=== PATIENT | female | born 1995 | race Caucasian/White ===

== ENCOUNTER → 2017-01-28 11:16 | Day surgery (SDC) | payer MEDICAID, SELFPAY | PROVIDERS: Visit Provider Anesthesiology | DX: Z53.9 Procedure and treatment not carried out, unspecified reason (principal) ==

== ENCOUNTER 2018-02-13 21:05 | Emergency (ER) | payer MEDICAID, SELFPAY ==
[2018-02-13 21:06] VITALS: BP 135/93; PULSE 135; RESP 14; TEMP 36.8; O2SAT 99; BMI 19.0
--- NOTE | 2018-02-13 21:17 | CT_ITS ---
STUDY: CT ABDOMEN AND PELVIS WITHOUT CONTRAST REASON FOR EXAM: Female, 22 years old. Left-sided abdominal pain with elevated blood pressure. RADIATION DOSAGE (If Supplied By Facility): CTDIvol = ( 6.04 ) mGy, DLP = ( 276.44 ) mGycm TECHNIQUE: Transaxial images were obtained from the dome of the diaphragm to the symphysis pubis without oral contrast, and without intravenous contrast. Sagittal and coronal images were reconstructed. Individualized dose optimization techniques were used for this CT. COMPARISON: Prior comparison studies are not available for review at this time. FINDINGS: The visualized lung bases are unremarkable. The visualized portions of the heart are within normal limits. Normal liver. The gallbladder is contracted. There is moderate splenomegaly. Estimated size of the spleen is approximately 19.5 cm in greatest dimension. Normal pancreas. Normal bilateral adrenal glands. 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 There is no evidence for hydronephrosis, hydroureter or radiopaque ureteral calculi. Normal visualized stomach. There is no evidence for dilated bowel, ascites or pneumoperitoneum. The small bowel has a grossly normal appearance. Stool visible throughout the colon. There is non-visualization of the appendix. Normal abdominal aorta. Normal inferior vena cava. There is borderline retroperitoneal lymphadenopathy with enlarged nodes no greater than 10mm in the short axis diameter. Normal urinary bladder. Normal visualized uterus. Normal abdominal wall. Normal osseous structures. CT/Abdomen/Pelvis without Cont IMPRESSION: Moderate splenomegaly. Electronically Signed: Adri Kee MD at 23:12 EST , Service support ,
--- NOTE | 2018-02-13 21:26 | ED.DCSUM_ITS ---
- ER Visit Summary Date of Service: 02/13/18 Chief Complaint: Acute left abdomen/flank pain History of Present Illness: The patient is a 22 F who presents with acute left abdomen/flank pain that started 2 days ago. She states is severe associate with nausea vomiting. This is more severe than pain she experienced with ovarian cyst. She is presently on her menstrual cycle. She denies dysuria, frequency, urgency or hematuria. She states she cannot find a position of comfort. She has no known history of renal ureterolithiasis. She denies ocular, visual or auditory symptoms. She denies fever, chills or night sweats. She denies cardiac respiratory symptoms. She denies history of trauma. She denies any rash or skin lesions. Physical Examination: Vital signs noted and triage has heart rate of 135. Patient was placed on monitor per ks and monitor reveals a sinus rhythm rate of 90. Head is atraumatic normocephalic. Pupils are equal round reactive. Extraocular muscles are intact. TMs are pearly white with landmarks noted. Nares patent with no drainage. Posterior pharynx without erythema or exudate. Uvula is midline. There is no dysphonia or dysphasia. Dentition is poor with evidence of gingivitis. Trachea is midline. There is no stridor with auscultation of the neck. Heart is regular without murmur, gallop or rub. S1 and S2 are normal. Lungs are clear to auscultation with good movement of air bilaterally. Abdomen is soft with tenderness to deep palpation over the left kidney. There is left CVA tenderness noted. No rash or skin lesions noted. No evidence of an inguinal hernia or inguinal lymphadenopathy. Test Results: CT of the abdomen and pelvis without contrast reveals mild splenomegaly. Basic metabolic panel is unremarkable. Serum test is negative. UA is remarkable for leukoesterase and blood 25 and 150 respectively. Nitrites negative. Micro reveals 0-5 WBCs 0-5 RBCs and 1+ bacteria. White count is normal with normal differential and no atypical lymphocytes Emergency Department Course and Treatment: IV was established to be treated with Toradol and Zofran. Blood work was obtained and CT of the abdomen pelvis and abdomen were obtained without contrast. The left-sided abdominal pain may be secondary to the spinal megaly. Will obtain CBC to assess for atypical lymphocytes and white count with differential. Treatment Plan: Prescription for Macrobid for cystitis and encourage fiber in her diet Disposition: Discharge to home Impression: 1. Left-sided abdominal pain secondary to obstipation 2. Mild splenomegaly This note was generated with [employer] dictation software. It may contain incorrect words, spelling, and punctuation that were not noted in review of the chart geno or to signing ED Disposition - Plan for ED Patient: Disposition: Home or Assisted Living Chief Complaint: Abd Pain Instructions: ED Constipation Referrals: Lore Barker MD [Primary Care Provider] - Doctor,Your [STAFF PHYSICIAN] - Additional Instructions: Your spleen is slightly enlarged. The cause of this is uncertain. You will need to follow-up with your primary care doctor that you were assigned to by your insurance carrier, [employer]. The name of that physician is located on your card with his or her phone number.
[2018-02-13] MEDS: 0.9% Normal Saline 1,000 ML 250 ML IV (21:29)
[2018-02-13] MEDS: Ondansetron 4 MG/2 ML Vial IV (21:30)
[2018-02-13] MEDS: Ketorolac 30 MG/ML Syringe IV (21:30)
[2018-02-13 21:52] LABS: Anion Gap 5 (5-15); BUN 22 mg/dL (7-18); BUN/Creat Ratio 28.8 RATIO (10-20); Calcium,Total 8.5 mg/dL (8.5-10.1); Chloride 110 mmol/L (98-107); Creatinine, Serum 0.76 mg/dL (0.55-1.02); EST Glomerular Filtration Rate 99 mL/min (>60); Est Glom Filt Rate - Afr Amer 119 mL/min (>60); Estimated Creatinine Clearance 90.46 ml/min; Glucose 89 mg/dL (74-106); Potassium 3.5 mmol/L (3.5-5.1); Sodium Level 142 mmol/L (136-145)
[2018-02-13 22:02] LABS: Pregnancy, Serum, hCG Quali. NEGATIVE Negative (0-9 Nonpreg)
[2018-02-13] MEDS: Dicyclomine 10 MG Capsule 20 MG PO (22:57)
[2018-02-13 23:01] LABS: Color, Urine Yellow (Yellow); Glucose, Dipstick Normal (Normal); Ketone-Dipstick 5 mg/dl (Negative); Leukocyte Esterase-Dipstick 25 /ul (Negative); Nitrite-Dipstick Negative (Negative); Occult Blood-Urine 150 /ul (Negative); Protein-Dipstick 30 mg/dl (Negative); Specific Gravity, Urine 1.025 (1.002-1.030); Urine Bilirubin Dipstick Negative (Negative); Urine Clarity Sl. Cloudy (Clear); Urine Urobilinogen Normal (Normal)
[2018-02-13 23:19] LABS: White Blood Cells 0-5 SEEN /hpf (0-5)
[2018-02-13 23:20] LABS: Bacteria 1+ /hpf (None Seen); Calcium Oxalate Crystals Ur RARE /hpf (<or=2+); Mucous, Urine 1+ /hpf (<or=2+); Red Blood Cells-Urine 0-5 SEEN /hpf (0-5); Squamous Epithelial Cells - UA 0-5 SEEN /hpf (5-10)
[2018-02-13 23:53] LABS: Absolute Lymphocyte Count 2.11 X10^3/ul (0.83-4.51); Absolute Neutrophil Count 4.9 X10^3/uL (2.0-7.7); Basophil# 0.02 X10^3/uL; Basophil% 0.3 % (0-1); Eosinophil# 0.11 X10^3/uL; Eosinophils% 1.4 % (0-5); Hematocrit 36.7 % (37-47); Hemoglobin 11.9 g/dl (12.0-15.0); Lymphocyte # 2.11 X10^3/ul (4.0); Lymphocyte % 27.6 % (19-41); Mean Corp Hgb Conc 32.4 g/gl (32-36); Mean Corpuscular Hgb 28.3 pg (27.0-32.0); Mean Corpuscular Volume 87.2 fL (81-99); Monocyte# 0.45 X10^3/uL; Monocyte% 5.9 % (0-10); Neutrophil # 4.94 X10^3/uL (2.7-7.7); Neutrophil % 64.7 % (47-70); Platelet Count 193 K/mm3 (150-450); RBC Distribution Width CV 12.2 % (11.6-14.6); RBC Distribution Width SD 38.3 fl (35.1-43.9); Red Blood Count 4.21 M/mm3 (4.2-5.4); White Blood Count 7.6 K/mm3 (4.4-11.0)
--- NOTE | 2018-02-14 00:22 | ED.VISSUMM ---
- ER Visit Summary Date of Service: 02/14/18 Chief Complaint: [] History of Present Illness: The patient is a 22 F [] Physical Examination: [] Test Results: [] Emergency Department Course and Treatment: [] Treatment Plan: [] Disposition: [] Impression: [] This note was generated with [employer] dictation software. It may contain incorrect words, spelling, and punctuation that were not noted in review of the chart prior to signing ED Disposition - Plan for ED Patient: Disposition: Home or Assisted Living Chief Complaint: Abd Pain Instructions: ED Constipation Prescriptions: Nitrofurantoin Macrocrystals [Macrobid] 100 mg PO Q12 #10 cap Referrals: Lore Barker MD [Primary Care Provider] - Doctor,Your [STAFF PHYSICIAN] - Additional Instructions: Your spleen is slightly enlarged. The cause of this is uncertain. You will need to follow-up with your primary care doctor that you were assigned to by your insurance carrier, [employer]. The name of that physician is located on your card with his or her phone number.
[2018-02-14 00:26] LABS: POSITIVE COUNT NO; POSITIVE DIFFERENTIAL NO; POSITIVE MORPHOLOGY NO
[2018-02-14] MEDS: Nitrofurantoin Macrocrystals 100 MG Capsule PO (00:27)
[2018-02-14 00:32] VITALS: BP 115/74; PULSE 82; RESP 14; O2SAT 100
== END 2018-02-14 00:33 | disposition home or self-care (01) ==
PROVIDERS: Emergency Provider Emergency Medicine; Family Provider Obstetrics & Gynecology; PCP Obstetrics & Gynecology
DX: K59.00 Constipation, unspecified (principal); R10.9 Unspecified abdominal pain; R16.1 Splenomegaly, not elsewhere classified; N30.90 Cystitis, unspecified without hematuria; N83.209 Unspecified ovarian cyst, unspecified side
CPT/HCPCS: 74176; 80048; 81001; 84703; 85025; 96361; 96374; 96375; 99284; J7030; A4216; J2405

== ENCOUNTER 2018-09-29 00:25 | Emergency (ER) | payer MEDICAID, SELFPAY ==
[2018-09-29 00:28] VITALS: BP 141/97; PULSE 109; RESP 16; TEMP 36.7; O2SAT 99; BMI 20.2
--- NOTE | 2018-09-29 00:31 | ED.VISSUMM ---
- ER Visit Summary Date of Service: 09/29/18 Chief Complaint: Tooth pain History of Present Illness: The patient is a 23 F who presents with tooth pain. Is been ongoing for 2 weeks. Pain is in the right lower part of the mouth. Worse when she chews. Denies fevers. No swelling. She tried [id number] meds and Orajel without any relief. She has an appointment and can this Thursday at a walk-in clinic Physical Examination: Patient afebrile. Mouth exam reveals widespread dental decay with gingivitis. She has multiple cavities with rotted teeth on the right lower side. These are tender to touch. There is no gingival abscess. No Eddie angina Test Results: None performed Emergency Department Course and Treatment: Patient will be treated with naproxen and penicillin here in the home. She will follow-up Thursday Treatment Plan: [] Disposition: Discharge Impression: Odontalgia This note was generated with [employer] dictation software. It may contain incorrect words, spelling, and punctuation that were not noted in review of the chart prior to signing ED Disposition - Plan for ED Patient: Referrals: Lore Barker MD [Primary Care Provider] -
--- NOTE | 2018-09-29 00:33 | ED.DEP ---
ED Disposition - Plan for ED Patient: Disposition: Home or Assisted Living Instructions: Dental Pain Prescriptions: Naproxen [Naprosyn] 500 mg PO BID PRN #20 tab Prescription Printed Penicillin V Potassium 500 mg PO 4X/DAY #28 tab Prescription Printed Referrals: Lore Barker MD [Primary Care Provider] -
[2018-09-29] MEDS: Naproxen 500 MG Tablet PO (00:38)
[2018-09-29] MEDS: Penicillin Vk 250 MG Tablet 500 MG PO (00:38)
[2018-09-29 00:39] VITALS: BP 141/97; PULSE 98; RESP 16; O2SAT 98
== END 2018-09-29 00:57 | disposition home or self-care (01) ==
LOC: ED 00:44
PROVIDERS: Emergency Provider Emergency Medicine; Family Provider Pediatrics; PCP Pediatrics
DX: K02.9 Dental caries, unspecified (principal); K05.10 Chronic gingivitis, plaque induced; K08.89 Other specified disorders of teeth and supporting structures
CPT/HCPCS: 99283

== ENCOUNTER 2018-10-10 19:20 | Emergency (ER) | payer MEDICAID, SELFPAY ==
[2018-10-10 19:20] VITALS: BP 145/92; PULSE 120; RESP 14; TEMP 36.6; O2SAT 100; BMI 18.4
--- NOTE | 2018-10-10 20:06 | EKG12_ITS ---
Test Reason : CP Blood Pressure : / mmHG Vent. Rate : 085 BPM Atrial Rate : 085 BPM P-R Int : 124 ms QRS Dur : 078 ms QT Int : 350 ms P-R-T Axes : 000 077 074 degrees QTc Int : 416 ms Normal sinus rhythm Normal ECG Confirmed by PAO ALCALA, ADRIANA ([id number]), senior technical editor ASPEN BENITEZ ([id number]) on 10/13/2018 11:48:54 AM Referred By: BB Confirmed By:ADRIANA CEDENO MD
[2018-10-10 20:07] VITALS: O2SAT 100
--- NOTE | 2018-10-10 20:08 | ED.VIS.GEN ---
History of Present Illness Chief Complaint: Poisoning Informant: Patient, Friend Onset: Today - Just prior to arrival Context: Gradual Onset Timing: Continuous Current Severity: Mild Maximum Severity: Moderate Narrative: Patient was helping to clean the house. She came into contact with some white powder on a scale that they are concerned was some type of drug. She then put gloves on but fears she might have touched it. She smelled something in the house that smelled like burned metal. She started feeling lethargic, tingling in her fingertips, trouble breathing, head pressure/headache, and general malaise. She did not lose consciousness. She had some vague chest discomfort that was nonpleuritic and is gone now. Being removed from the house and brought here has helped some but she still does not feel well. She does not use any drugs or smoke. - Past Medical History (1) Anxiety Status: Chronic Past Medical History - Allergies and Home Meds Allergies/Adverse Reactions: Allergies codeine phosphate [From Tylenol-Codeine #3] Allergy (Verified 10/10/18 19:23) Anaphylaxis hydrocodone bitartrate [From Vicodin] Allergy (Verified 10/10/18 19:23) Anaphylaxis hydroxyzine Allergy (Verified 10/10/18 19:23) Anaphylaxis Primary Care Physician: Apple Saunders MD [Primary Care Provider] - Smoking Status: Never smoker Drugs: None Review of Systems General: Reports: Malaise. Denies: Chills, Fever, Sweats Eyes: Denies: Visual changes - bilaterally, Diplopia ENT: Denies: Rhinorrhea, Sore throat Cardiovascular: Reports: Chest pain. Denies: Palpitations Respiratory: Reports: Dyspnea. Denies: Cough, Dyspnea on exertion Gastrointestinal: Denies: Abdominal pain, Nausea, Vomiting, Diarrhea, Melena, Hematochezia Genitourinary: Denies: Dysuria, Hematuria, Frequency Musculoskeletal: Denies: Back pain, Extremity Pain Skin: Denies: Rash, Wounds Neurological: Reports: Parasthesia. Denies: Headache, Weakness Physical Exam Vital Signs/Narrative: Vital Signs Temp Pulse Resp BP Pulse Ox 10/10/18 19:20 97.8 F 120 H 14 145/92 H 100 Inital Vital Signs reviewed: Yes General: Well nourished, Well developed, No Acute Distress Head: Normocephalic, Atraumatic Eyes: Perrl, EOMI, - - Normal exam, no excessive lacrimation ENT: Moist mucous membranes, No rhinorrhea Neck: Supple, Nontender Cardiovascular: Regular rate, Regular rhythm, No murmurs, Tachycardia Respiratory: No distress, CTA bilaterally, Chest nontender Abdomen: Soft, Nontender, Nondistended, Normal bowel sounds Back: Nontender, Normal Inspection Extremities: Nontender, No edema Skin: Normal color - No gary-red or other discoloration, No rash, No Trauma, - - Dry, no diaphoresis Neurological: Alert, Oriented x3, Cranial nerves II-XII grossly intact, Normal Strength, Normal Sensation Psychological: Normal Mood, - - Anxious Diagnostic/Tx/Re-eval Laboratory Results 10/10/18 10/10/18 20:18 20:33 VBG Carboxyhemoglobin 2.0 H Urine Opiates Screen NEGATIVE Urine Methadone Screen NEGATIVE Ur Barbiturates Screen NEGATIVE Ur Phencyclidine Scrn NEGATIVE Ur Amphetamines Screen POSITIVE H U Methamphetamin-MDMA NEGATIVE U Benzodiazepines Scrn NEGATIVE Urine Cocaine Screen NEGATIVE U Cannabinoids Screen NEGATIVE Ur Drug Screen Comment - Rhythm Strip Rhythm Strip: Sinus Rhythm Rate: 85 Ectopy: None - EKG Initial EKG Interpretation: Sinus Rhythm, No Acute Injury Pattern - normal EKG Prior: Unchanged - c/w 06/04/15 - Medical Decision Making Patient was treated with oxygen, liter of IV fluid, and a gram of Tylenol for headache. On reevaluation she is feeling much better. Carbon monoxide level is 2, essentially ruling that out. Her vital signs have remained normal, I do not think she had symptoms of cyanide poisoning, she did not lose consciousness, so I did not feel blood work was necessary. We did a toxicology screen that returned positive for amphetamines but negative for methamphetamine and everything else. The patient's thinks that she took some NyQuil 2 nights ago, which could have triggered that. She is on no ADD medications, just for depression and anxiety and Maxalt for migraines. The states that police told her the powder they were possibly exposed to was suspected to be heroin. This patient does not have a narcotic toxidrome. She does not have an organophosphate sludge toxidrome. I suspect she inhaled a pulmonary irritant, that and her anxiety were probably at play here. Her vital signs are normal and I feel she is stable for discharge home with her and she is comfortable with that plan as well. ED Disposition - Plan for ED Patient: Disposition: Home or Assisted Living Diagnosis: Poisoning by gaseous substance Instructions: Chemical Inhalation Referrals: Apple Saunders MD [Primary Care Provider] - 1-2 Days if not improving
[2018-10-10] MEDS: 0.9% Normal Saline 1,000 ML 999 ML IV (20:23)
[2018-10-10] MEDS: Acetaminophen 500 MG Tablet 1000 MG PO (20:47)
[2018-10-10 20:56] LABS: Amphetamine Urine VISTA POSITIVE (<1000 ng/mL); Barbiturate Urine VISTA NEGATIVE (< 200 ng/mL); Benzodiazepine Urine VISTA NEGATIVE (< 200 ng/mL); Cocaine Urine VISTA NEGATIVE (< 300 ng/mL); Ecstacy Urine VISTA NEGATIVE (< 500 ng/mL); Methadone Urine VISTA NEGATIVE (< 300 ng/mL); PCP Urine VISTA NEGATIVE (< 25 ng/mL); THC Urine VISTA NEGATIVE (< 50 ng/mL); Vista UDS pH Range 6
[2018-10-10 21:20] VITALS: BP 117/75; PULSE 81; RESP 15; O2SAT 100
[2018-10-10 22:15] VITALS: BP 117/71; PULSE 85; RESP 16; O2SAT 98
== END 2018-10-10 22:16 | disposition home or self-care (01) ==
PROVIDERS: Emergency Provider Emergency Medicine; Family Provider Pediatrics; PCP Pediatrics
DX: T59.91XA Toxic effect of unspecified gases, fumes and vapors, accidental (unintentional), initial encounter (principal); R06.00 Dyspnea, unspecified; R20.2 Paresthesia of skin; R53.81 Other malaise; R07.89 Other chest pain; Y92.9 Unspecified place or not applicable; F41.9 Anxiety disorder, unspecified; F32.9 Major depressive disorder, single episode, unspecified; G43.909 Migraine, unspecified, not intractable, without status migrainosus; Z79.899 Other long term (current) drug therapy
CPT/HCPCS: 80307; 82375; 93005; 96360; 99282; J7030; A4216

== ENCOUNTER 2019-09-20 18:59 | Emergency (ER) | payer MEDICAID, SELFPAY ==
[2019-09-20 19:01] VITALS: BP 110/75; PULSE 98; RESP 16; TEMP 36.6; O2SAT 100; BMI 21.2
--- NOTE | 2019-09-20 19:16 | EKG12_ITS ---
Test Reason : BACK PAIN Blood Pressure : / mmHG Vent. Rate : 090 BPM Atrial Rate : 090 BPM P-R Int : 136 ms QRS Dur : 078 ms QT Int : 330 ms P-R-T Axes : 071 074 070 degrees QTc Int : 403 ms Normal sinus rhythm Normal ECG When compared with ECG of 10-OCT-2018 20:13, No significant change was found Confirmed by JANETH MARTINEZ ([id number]), editor & co founder MARLENY FLOR ([id number]) on 10/03/2019 2:29:36 PM Referred By: ED Confirmed By:JANETH MARTINEZ
--- NOTE | 2019-09-20 19:17 | CT_ITS ---
STUDY: CT ABDOMEN AND PELVIS WITHOUT CONTRAST REASON FOR EXAM: Female, 24 years old. RT FLANK PAIN/DECREASED URINATION/HEMATURIA. Hx of prior csection and tubal ligation RADIATION DOSAGE (If Supplied By Facility): CTDIvol = ( 6.04 ) mGy, DLP = ( 277.84 ) mGycm TECHNIQUE: Transaxial images were obtained from the dome of the diaphragm to the symphysis pubis without oral contrast, and without intravenous contrast. Sagittal and coronal images were reconstructed. Individualized dose optimization techniques were used for this CT. COMPARISON: None. FINDINGS: The visualized lung bases are unremarkable. Normal liver. No intrahepatic biliary duct dilatation or liver mass. The gallbladder is contracted. Normal spleen. Normal pancreas. Normal bilateral adrenal glands. Normal right kidney. Normal left kidney. No hydronephrosis or renal masses. No large stones. Normal visualized stomach. Normal small intestine. Normal colon. A large amount of stool is present throughout the colon. No bowel dilatation or obstruction. No free air or free fluid. The appendix is visualized and appears normal. Normal abdominal aorta. Normal inferior vena cava. Normal retroperitoneum. Normal urinary bladder. Process unremarkable uterus and adnexal regions. Bilateral adnexal clips are present. Normal abdominal wall. Normal osseous structures. CT/Abdomen/Pelvis without Cont IMPRESSION: 1. No visualized hydronephrosis or radiopaque stones 2. Large amount of stool throughout the colon Electronically Signed: Roger Logan MD at 20:52 EDT , Service support ,
--- NOTE | 2019-09-20 19:18 | ED.VIS.GEN ---
History of Present Illness Chief Complaint: Abd Pain Informant: Patient Narrative: Patient is a 24-year-old female who presents to the emergency department for right-sided flank and abdominal pain. This started 1 week ago. It has been coming and going. She currently rates as a 7 out of 10 sharp pain. She states that her significant other did have a kidney stone and had a strainer present. She did use a strainer and thinks that she had passed a kidney stone. This was 2 days ago but her symptoms have returned. He is having burning with urination as well as difficulty urinating. She does have a history of UTIs before in the past. She has had intermittent fevers. She states that this morning it was 101. She did take Tylenol and ibuprofen which has not really been helping. Otherwise does not know aggravating factors. She has no history of kidney stones previously. Only abdominal surgery in the past was for section. Has any change in bowel habits. She had vomiting 2 days ago but now is not complaining of any nausea. She denies any chest pain or shortness of breath. She does have some suprapubic fullness sensation. She is starting to have some left-sided back pain as well as the right although the right is much more severe. She denies smoking, drinking or drug use. Past Medical History - Allergies and Home Meds Allergies/Adverse Reactions: Allergies codeine phosphate [From Tylenol-Codeine #3] Allergy (Verified 09/20/19 19:01) Anaphylaxis hydrocodone bitartrate [From Vicodin] Allergy (Verified 09/20/19 19:01) Anaphylaxis hydroxyzine Allergy (Verified 09/20/19 19:01) Anaphylaxis Primary Care Physician: Estela Carrasco MD [STAFF PHYSICIAN] - 3-5 Days NOT,DEFINED [NON-STAFF] - Prior records reviewed: Yes Surgical History: - - section Smoking Status: Never smoker Alcohol: None Drugs: None Review of Systems All systems negative except as indicated General: Reports: Fever. Denies: Chills ENT: Denies: Bilateral ear pain Cardiovascular: Denies: Chest pain, Palpitations Respiratory: Denies: Dyspnea, Cough Gastrointestinal: Reports: Abdominal pain. Denies: Nausea, Vomiting, Diarrhea, Constipation Genitourinary: Reports: Dysuria. Denies: Hematuria Musculoskeletal: Reports: Back pain - Flank pain Skin: Denies: Rash, Abscess Neurological: Denies: Headache, Weakness Physical Exam Vital Signs/Narrative: Vital Signs Temp Pulse Resp BP Pulse Ox 09/20/19 19:01 97.8 F 98 16 110/75 100 General: Well nourished, Well developed, No Acute Distress Head: Normocephalic, Atraumatic Eyes: Perrl, EOMI ENT: Moist mucous membranes, No rhinorrhea Neck: Supple, Nontender Cardiovascular: Regular rate, Regular rhythm, No murmurs Respiratory: No distress, CTA bilaterally, Chest nontender Abdomen: Soft, Nondistended, Normal bowel sounds, Tender - Right flank and right lower quadrant Back: Nontender, Normal Inspection, CVA tenderness - Right-sided, mild on the left. Negative for: Spinal tenderness Extremities: Nontender, No edema Skin: Normal color, No rash Neurological: Alert, Oriented x3, Cranial nerves II-XII grossly intact, Normal Strength, Normal Sensation Psychological: Normal affect, Normal Mood Diagnostic/Tx/Re-eval - EKG Initial EKG Interpretation: - - Rate of 90 bpm and normal sinus rhythm. Normal intervals. Normal axis. No ST elevations or depressions appreciated. No T wave abnormalities. No prior EKG for comparison. - Medical Decision Making Patient presents to the emergency department for right-sided flank pain and abdominal pain. She states that she thought she passed a kidney stone. Having urinary tract infection symptoms. Upon arrival to the [facility] department vital signs within normal limits. Will check basic lab work to evaluate kidney function. Will check urinalysis to evaluate for UTI. CT scan being obtained to evaluate for kidney stones. CT scan did not show any evidence of obstructing stone. Given the patient's dysuria some white blood cells and leukocyte esterase will treat with antibiotics. She is given first dose here in the emergency department. She has tried Pyridium before in the past and she wants this again. Otherwise no significant acute abnormality on lab work. She does feel countable going home. She is feeling better after Toradol treatment. Warning signs and symptoms for which to return to the emerge department including inability keep antibiotics down, developing any fevers or worsening pain are reviewed. She otherwise is to follow-up with the PCP. She does not have one so she was provided a physician from the no doc list. She understands and is agreeable with this plan. ED Disposition - Plan for ED Patient: Disposition: Home or Assisted Living Diagnosis: UTI (urinary tract infection), Flank pain Instructions: Understanding Urinary Tract Infections (UTIs) Prescriptions: Cephalexin [Keflex] 500 mg PO Q12 #14 cap Transmission Status: Received by [id number] Phenazopyridine HCl [Pyridium] 200 mg PO BID PRN PRN #10 tab PRN Reason: Pain Transmission Status: Received by [id number] Referrals: NOT,DEFINED [NON-STAFF] - Estela Carrasco MD [STAFF PHYSICIAN] - 3-5 Days
[2019-09-20] MEDS: Ketorolac 30 MG/ML Syringe IM (19:38)
[2019-09-20 19:49] LABS: Absolute Lymphocyte Count 2.19 X10^3/uL (0.83-4.51); Absolute Neutrophil Count 6.5 X10^3/uL (2.0-7.7); Basophil# 0.02 X10^3/uL; Basophil% 0.2 % (0-1); Eosinophil# 0.16 X10^3/uL; Eosinophils% 1.7 % (0-5); Hematocrit 36.9 % (37-47); Hemoglobin 11.9 g/dL (12.0-15.0); Lymphocyte # 2.19 X10^3/ul (4.0); Mean Corp Hgb Conc 32.2 g/dL (32-36); Mean Corpuscular Hgb 28.7 pg (27.0-32.0); Mean Corpuscular Volume 88.9 fL (81-99); Mean Platelet Vol. 10.6 fl (6.2-12.0); Monocyte# 0.61 X10^3/uL; Monocyte% 6.4 % (0-10); NRBC Flagged by Analyzer 0 % (0-5); Neutrophil # 6.51 X10^3/uL (2.7-7.7); Neutrophil % 68.5 % (47-70); Platelet Count 167 K/mm3 (150-450); RBC Distribution Width CV 12.5 % (11.6-14.6); RBC Distribution Width SD 40.2 fl (35.1-43.9); Red Blood Count 4.15 M/mm3 (4.2-5.4); White Blood Count 9.5 K/mm3 (4.4-11.0)
[2019-09-20 19:49] LABS: Bacteria 0 SEEN /hpf (None Seen); Mucous, Urine 0 SEEN /hpf (<or=2+)
[2019-09-20 19:50] LABS: Color, Urine Yellow (Yellow); Glucose, Dipstick Normal (Normal); Ketone-Dipstick Negative (Negative); Leukocyte Esterase-Dipstick 500 /ul (Negative); Nitrite-Dipstick Negative (Negative); Occult Blood-Urine Negative /ul (Negative); Protein-Dipstick Negative (Negative); Urine Bilirubin Dipstick Negative (Negative); Urine Clarity Clear (Clear); Urine Urobilinogen Normal (Normal)
[2019-09-20 19:52] LABS: Internal QC Validated? YES +Cl - CLEAR BKGD; Pregnancy, Urine Negative Negative
[2019-09-20 19:57] LABS: Red Blood Cells-Urine 0-5 SEEN /hpf (0-5); Squamous Epithelial Cells - UA 0-5 SEEN /hpf (5-10); White Blood Cells 10-25 SEEN /hpf (0-5)
[2019-09-20 20:06] LABS: Anion Gap 4 (5-15); BUN 21 mg/dL (7-18); BUN/Creat Ratio 32.1 RATIO (10-20); Calcium,Total 8.5 mg/dL (8.5-10.1); Chloride 111 mmol/L (98-107); Creatinine, Serum 0.66 mg/dL (0.55-1.02); EST Glomerular Filtration Rate 116 mL/min (>60); Est Glom Filt Rate - Afr Amer 140 mL/min (>60); Estimated Creatinine Clearance 106.85 ml/min; Glucose 69 mg/dL (74-106); Potassium 4.1 mmol/L (3.5-5.1); Sodium Level 142 mmol/L (136-145)
[2019-09-20] MEDS: Cephalexin 250 MG Capsule 500 MG PO (21:10)
[2019-09-20 21:12] VITALS: RESP 16
== END 2019-09-20 21:12 | disposition home or self-care (01) ==
PROVIDERS: Emergency Provider Emergency Medicine; PCP Nurse Practitioner Primary Care
DX: N39.0 Urinary tract infection, site not specified (principal); Z87.440 Personal history of urinary (tract) infections
CPT/HCPCS: 36415; 74176; 80048; 81001; 81025; 85025; 87086; 87088; 93005; 96372; 99283

== ENCOUNTER 2020-04-21 02:22 | Emergency (ER) | payer MEDICAID, SELFPAY ==
[2020-04-21 02:25] VITALS: BP 115/80; PULSE 96; RESP 16; TEMP 36.5; O2SAT 100; BMI 18.0
[2020-04-21 02:35] VITALS: BP 115/80; PULSE 96; RESP 16; TEMP 36.5; O2SAT 100
--- NOTE | 2020-04-21 03:22 | CT_ITS ---
STUDY: CT FACIAL BONES WITH CONTRAST REASON FOR EXAM: Female, 24 years old. facial swelling RADIATION DOSAGE (If Supplied By Facility): CTDIvol = ( 29.38 ) mGy, DLP = ( 554.80 ) mGycm TECHNIQUE: The patient was scanned in a multi detector CT scanner. Transaxial imaging was performed following the intravenous administration of IV 100mL Isovue-300. Sagittal and coronal images were reconstructed. Individualized dose optimization techniques were used for this CT. COMPARISON: None. FINDINGS: Left-sided facial swelling and edema without discrete abscess suggesting cellulitis. Normal orbital chaparro and orbital contents. Normal nasal bones and anterior nasal spine. Normal facial bones. There is no demonstrated fracture. Normal visualized paranasal sinuses. CT/Sinus/Facial Bone WITH Contras IMPRESSION: Suspected cellulitis of the left side of the face with swelling and edema. No abscess Electronically Signed: Bud Beltrán DO at 4:23 EST Tel , Service support ,
--- NOTE | 2020-04-21 03:35 | ED.VIS.DENTA ---
History of Present Illness Chief Complaint: Dental Informant: Patient, Significant Other Narrative: Patient is a 24-year-old female presenting with worsening facial swelling. Patient was placed on antibiotics for dental pain and facial swelling about 8 days ago at [facility] walk-in clinic. She is placed on Augmentin. Has been compliant with it. Tonight her significant other noticed increased swelling of her face. Patient states she is having more pain from the swelling and feels that she is having hard time swallowing because of the swelling. No reported fever or chills. Patient is been taking Naprosyn for pain. Patient is resting in the bed on my evaluation. Past Medical History - Allergies and Home Meds Allergies/Adverse Reactions: Allergies codeine phosphate [From Tylenol-Codeine #3] Allergy (Verified 04/21/20 02:23) Anaphylaxis hydrocodone bitartrate [From Vicodin] Allergy (Verified 04/21/20 02:23) Anaphylaxis hydroxyzine Allergy (Verified 04/21/20 02:23) Anaphylaxis Primary Care Physician: Barbara Rivera NP, WINDOW REPAIRER-C [Primary Care Provider] - Past Medical History: None Surgical History: - - section Lives: Spouse/ Significant Other Smoking Status: Never smoker Review of Systems General: Denies: Chills, Fever, Malaise, Sweats Eyes: Denies: Visual changes - bilaterally, Diplopia ENT: Reports: - - left lower dental pain, facial swelling . Denies: Rhinorrhea, Sore throat Cardiovascular: Denies: Chest pain, Palpitations Respiratory: Denies: Dyspnea, Cough, Dyspnea on exertion Gastrointestinal: Denies: Abdominal pain, Nausea, Vomiting, Diarrhea, Melena, Hematochezia Genitourinary: Denies: Dysuria, Hematuria, Frequency Musculoskeletal: Denies: Back pain, Extremity Pain Skin: Denies: Rash, Wounds Neurological: Denies: Headache, Weakness, Numbness Physical Exam Vital Signs/Narrative: Vital Signs Temp Pulse Resp BP Pulse Ox 04/21/20 02:35 97.7 F L 96 16 115/80 100 04/21/20 02:25 97.7 F L 96 16 115/80 100 Inital Vital Signs reviewed: Yes General: Well nourished, Well developed Head: Normocephalic, Atraumatic ENT: Moist mucous membranes, No rhinorrhea, TM's clear Mouth/Throat: Normal inspection lips/gums, Normal oral mucosa, No focal abscess, Gingivitis, Widespread dental decay, - - swelling of left cheek. Negative for: Dental trauma, Dental abscess, Trismus Neck: Supple, No lymphadenopathy, Nontender, No JVD. Negative for: Soft tissue swelling, Submandibular soft tissue swelling, Submental soft tissue swelling, Parotid tenderness Cardiovascular: Regular rate, Regular rhythm, No murmurs Respiratory: No distress, CTA bilaterally, Chest nontender Abdomen: Soft, Nontender, Nondistended, Normal bowel sounds Back: Nontender, Normal Inspection Extremities: Nontender, No edema Skin: Normal color, No rash Neurological: Alert, Oriented x3, Cranial nerves II-XII grossly intact, Normal Strength, Normal Sensation Psychological: Normal affect Diagnostic/Tx/Re-eval Clinical Impression(s) from Imaging Studies Facial/Sinus 04/21/20 03:22 IMPRESSION: Suspected cellulitis of the left side of the face with swelling and edema. No abscess Electronically Signed: Bud Beltrán DO at 4:23 EST Tel , Service support , Laboratory Data 04/21/20 04/21/20 03:35 03:35 WBC 10.8 RBC 4.37 Hgb 12.4 Hct 38.6 MCV 88.3 MCH 28.4 MCHC 32.1 RDW Std Deviation 41.1 RDW Coeff of Wilson 12.8 Plt Count 207 MPV 9.5 Immature Gran % (Auto) 0.300 Neut % (Auto) 60.7 Lymph % (Auto) 29.0 [place] % (Auto) 7.7 Eos % (Auto) 1.9 Baso % (Auto) 0.4 Absolute Neuts (auto) 6.6 Absolute Lymphs (auto) 3.14 Nucleated RBC % 0 Sodium 140 Potassium 3.5 Chloride 108 H Carbon Dioxide 31.0 Anion Gap 1 L BUN 14 Creatinine 0.70 Estim Creat Clear Calc 91.52 Est GFR (MDRD) Af Amer 129 Est GFR (MDRD) Non-Af 107 BUN/Creatinine Ratio 20.0 Glucose 101 Calcium 8.6 - Medical Decision Making Patient evaluated for worsening facial swelling. She has poor dentition and is currently on Augmentin for concern of dental infection. Throughout the night her facial swelling became worse despite being on the Augmentin. Patient has appointment to see her dentist in about a week. She has been taking Naprosyn which does provide pain control but makes her quite sleepy. Given the fact that patient is currently on appropriate antibiotic therapy and has worsening swelling I did obtain a CT to look for abscess or any worse pathology. On physical exam there is no obvious abscess amenable to drainage. CT is consistent with a cellulitis with soft tissue swelling. On exam patient does not have any findings consistent with a Eddie's angina. This is not seen on CT either. Patient is given a dose of IV clindamycin will be switched from Augmentin to clindamycin. She is instructed that she can alternate Tylenol and NSAIDs for pain control. Patient is counseled on signs and symptoms requiring return to the emergency room. Patient verbalizes agreement and understand this plan. Patient discharged home in stable and improved condition. ED Disposition - Plan for ED Patient: Disposition: Home or Assisted Living Diagnosis: Facial cellulitis, Dentalgia Instructions: ED Cellulitis, Facial, ED Dental Pain Prescriptions: Clindamycin [Cleocin] 450 mg PO TID #90 cap Transmission Status: Pending to [employer] [facility] Referrals: PodlogarBarbara NP, WINDOW REPAIRER-C [Primary Care Provider] - Additional Instructions: Stop taking the Augmentin and start taking the clindamycin which was prescribed today. You were given your first dose via the IV. We alternate Tylenol and ibuprofen/Naprosyn for better pain control. Please follow-up shortly with your dentist. Please return to the emergency room should you develop any worsening swelling especially underneath your tongue or underneath your chin or develop difficulty swallowing/breathing.
[2020-04-21 03:36] VITALS: BP 115/63; PULSE 103; RESP 16; TEMP 36.5; O2SAT 100
[2020-04-21 03:41] VITALS: BP 115/63; PULSE 103; RESP 16; TEMP 36.5; O2SAT 100
[2020-04-21 03:48] LABS: Absolute Lymphocyte Count 3.14 X10^3/uL (0.83-4.51); Absolute Neutrophil Count 6.6 X10^3/uL (2.0-7.7); Basophil# 0.04 X10^3/uL; Basophil% 0.4 % (0-1); Eosinophil# 0.21 X10^3/uL; Eosinophils% 1.9 % (0-5); Hematocrit 38.6 % (37-47); Hemoglobin 12.4 g/dL (12.0-15.0); Lymphocyte # 3.14 X10^3/ul (4.0); Mean Corp Hgb Conc 32.1 g/dL (32-36); Mean Corpuscular Hgb 28.4 pg (27.0-32.0); Mean Corpuscular Volume 88.3 fL (81-99); Mean Platelet Vol. 9.5 fl (6.2-12.0); Monocyte# 0.84 X10^3/uL; Monocyte% 7.7 % (0-10); NRBC Flagged by Analyzer 0 % (0-5); Neutrophil # 6.58 X10^3/uL (2.7-7.7); Neutrophil % 60.7 % (47-70); Platelet Count 207 K/mm3 (150-450); RBC Distribution Width CV 12.8 % (11.6-14.6); RBC Distribution Width SD 41.1 fl (35.1-43.9); Red Blood Count 4.37 M/mm3 (4.2-5.4); White Blood Count 10.8 K/mm3 (4.4-11.0)
[2020-04-21 04:03] LABS: Anion Gap 1 (5-15); BUN 14 mg/dL (7-18); Calcium,Total 8.6 mg/dL (8.5-10.1); Chloride 108 mmol/L (98-107); EST Glomerular Filtration Rate 107 mL/min (>60); Est Glom Filt Rate - Afr Amer 129 mL/min (>60); Estimated Creatinine Clearance 91.52 ml/min; Glucose 101 mg/dL (74-106); Potassium 3.5 mmol/L (3.5-5.1); Sodium Level 140 mmol/L (136-145)
[2020-04-21 04:41] VITALS: BP 115/63; PULSE 103; RESP 16; TEMP 36.5; O2SAT 100
[2020-04-21 05:05] VITALS: BP 119/77; PULSE 90; RESP 18; O2SAT 99
[2020-04-21] MEDS: Ketorolac 15 MG/ML Vial IV (05:20)
== END 2020-04-21 05:35 | disposition home or self-care (01) ==
PROVIDERS: Emergency Provider Emergency Medicine; PCP Nurse Practitioner Primary Care
DX: L03.211 Cellulitis of face (principal); K04.7 Periapical abscess without sinus; K08.89 Other specified disorders of teeth and supporting structures
CPT/HCPCS: 70487; 80048; 85025; 96365; 96375; 99283; Q9967; A4216

== ENCOUNTER 2020-06-12 11:18 | Emergency (ER) | payer MEDICAID, SELFPAY ==
[2020-06-12 11:19] VITALS: BP 108/83; PULSE 103; RESP 16; TEMP 36.4; O2SAT 100; BMI 20.5
--- NOTE | 2020-06-12 11:36 | CT_ITS ---
STUDY: CT ABDOMEN AND PELVIS WITH CONTRAST REASON FOR EXAM: Female, 24 years old. Right lower quadrant pain. Elevated white count. History of renal calculi. RADIATION DOSAGE (If Supplied By Facility): CTDIvol = ( 7.32 ) mGy, DLP = ( 216.34 ) mGycm TECHNIQUE: Transaxial images were obtained from the dome of the diaphragm to the symphysis pubis with oral contrast. Oral and amp; IV Gastrografin and amp; 100mL Isovue-300 was administered. Sagittal and coronal images were reconstructed. Individualized dose optimization techniques were used for this CT. COMPARISON: Comparison is made with prior study dated 09/20/2019. FINDINGS: The visualized lung bases are unremarkable. The visualized portions of the heart are within normal limits. Normal liver. Normal gallbladder and extrahepatic biliary system. Normal spleen. Normal pancreas. Normal bilateral adrenal glands. Normal right kidney. Normal left kidney. Normal visualized stomach. Normal small intestine. Normal colon. The appendix is visualized and appears normal. Normal abdominal aorta. Normal inferior vena cava. Normal retroperitoneum. Normal urinary bladder. The uterus is retroverted. Thickened endometrium measuring 3.1 cm. There is evidence of prior bilateral tubal ligation with clips. Small amount of fluid is seen in the cul-de-sac. Follicles are seen in both ovaries. Normal abdominal wall. Normal osseous structures. CT/Abdomen/Pelvis WITH Contrast IMPRESSION: Thickened endometrium. Small amount of fluid in the cul-de-sac. Bilateral ovarian follicles. Electronically Signed: Trev Nuñez MD at 14:22 EDT , Service support ,
--- NOTE | 2020-06-12 11:39 | EDS_ITS ---
HPI HPI - GI History of Present Illness Chief Complaint: Abd Pain Informant: patient Abdominal Pain/Flank Pain Onset: Yesterday Timing: Continuous Quality: Stabbing and - (Throbbing) Location: RUQ, RLQ and Right Flank Current Severity: Moderate Nausea/Vomiting/Emesis GI Symptom: Positive for Nausea and Vomiting Quality: Negative for Coffee ground and Hematemesis Diarrhea/Melena/Hematochezia GI Symptom: Negative for Diarrhea, Melena and Hematochezia Associated Symptoms Associated Symptoms: Positive for Dysuria, Frequency and Hematuria Narrative Narrative: Patient presents with right-sided abdominal pain that began yesterday evening. Patient states it felt better when she was sleeping. Patient states that when she woke up today her pain was severe. Patient states she did break out into a sweat with the pain. Patient denies any fevers or chills. Patient admits to some nausea and vomiting but denies any hematemesis or coffee-ground emesis. Patient admits to some dysuria, frequency and slight hematuria. PFSH PFSH Medical History (Updated 06/12/20 @ 15:[address] Pedro Georges DO) Depression Kidney stones Home Medications NK 06/12/20 [History Last Taken Unknown] ciprofloxacin HCl 500 mg PO BID #14 tablet 06/12/20 [Rx Last Taken Unknown] Allergy/AdvReac Type Severity Reaction Status Date / Time codeine phosphate Allergy Anaphylaxis Verified 06/12/20 11:34 [From Tylenol-Codeine #3] hydrocodone bitartrate Allergy Anaphylaxis Verified 06/12/20 11:34 [From Vicodin] hydroxyzine Allergy Anaphylaxis Verified 06/12/20 11:34 Morpholine Analogues Allergy Hives Verified 06/12/20 12:17 Surgical History (Updated 06/12/20 @ 11:[address] Pedro Georges DO) History of section Social History Smoking Status: Never smoker ROS ROS ED Constitutional Constitutional ED: Denies chills or fever(s) Eyes Eyes: Denies change in vision or double vision ENT ENT ED: Denies rhinorrhea or sore throat Cardiovascular Cardiovascular: Denies chest pain or palpitations Respiratory/Chest Respiratory/Chest: Denies cough or dyspnea Gastrointestinal Gastrointestinal: Reports as per HPI, abdominal pain, nausea and vomiting Genitourinary Genitourinary ED: Reports as per HPI, dysuria, flank pain and hematuria Musculoskeletal Musculoskeletal: Denies back pain or neck pain Integumentary Denies abscess or rash Neurologic Neurologic: Reports headache(s); Denies weakness Allergic/Immunologic Allergic/Immunologic ED: Denies lip swelling, hives or urticaria EXAM Physical Exam Const Vital Signs: 06/12/20 11:19 06/12/20 13:53 Temperature 97.6 F L 97.9 F Temperature Source Temporal Temporal Pulse Rate 103 H 99 Respiratory Rate 16 14 Blood Pressure 108/83 H 104/60 Blood Pressure Mean 91 74 Pulse Ox 100 100 Oxygen Delivery Method Room Air Room Air Positive well nourished and well developed General Appearance ED: well developed Orientation / Consciousness: awake and oriented to person Exam Limitations: no limitations HEENT Reports normocephalic and moist oral mucous membranes Neck full ROM and supple Resp normal respiratory effort and clear to auscultation bilaterally Cardio regular rate and regular rhythm GI normal to inspection, nondistended, normoactive bowel sounds and soft to palpation Auscultation: normoactive bowel sounds Palpation: soft and tender RLQ and RUQ Extremity normal to inspection and full ROM General Extremety ED: Negative for edema or tenderness General Extremity: Negative for edema Neuro oriented x3, CN's II-XII intact bilaterally, moves all extremities, no focal motor deficits and no sensory deficits noted MDM MDM MDM Narrative Medical decision making narrative: Patient was given a dose of morphine here. Patient developed an erythematous rash at the injection site. Patient was given a dose of Benadryl. CBC and comprehensive metabolic profile were essentially within normal limits. Urinalysis shows evidence of urinary tract infection. CT scan of the abdomen pelvis was obtained. The kidneys are normal. There is a thickened endometrium. There is no acute intra-abdominal pathology. This was interpreted by the radiologist and reviewed by myself. Patient was given a dose of Rocephin here. Patient was given a prescription for Cipro. Patient was instructed to follow-up with her primary care physician in 5 to 7 days. Patient understood and was agreeable with the plan. All questions were answered. Lab Data Labs: Laboratory Results - last 24 hr 06/12/20 06/12/20 06/12/20 11:45 12:00 12:00 WBC 12.1 H RBC 4.27 Hgb 11.8 L Hct 37.7 MCV 88.3 MCH 27.6 MCHC 31.3 L RDW Std Deviation 43.1 RDW Coeff of Wilson 13.3 Plt Count 223 MPV 10.1 Immature Gran % (Auto) 0.200 Neut % (Auto) 77.4 H Lymph % (Auto) 15.3 L Donley % (Auto) 5.6 Eos % (Auto) 1.3 Baso % (Auto) 0.2 Absolute Neuts (auto) 9.3 H Absolute Lymphs (auto) 1.84 Nucleated RBC % 0 Sodium 138 Potassium 4.3 Chloride 107 Carbon Dioxide 26.0 Anion Gap 5 BUN 25 H Creatinine 0.67 Estim Creat Clear Calc 109.34 Est GFR (MDRD) Af Amer 136 Est GFR (MDRD) Non-Af 112 BUN/Creatinine Ratio 37.3 H Glucose 77 Calcium 8.6 Total Bilirubin 1.50 H AST 17 ALT 22 Alkaline Phosphatase 68 Total Protein 7.1 Albumin 3.6 Globulin 3.5 Albumin/Globulin Ratio 1.0 Lipase 99 Serum , Qual Urine Color Yellow Urine Clarity Cloudy Urine pH 6.0 Ur Specific Alexander 1.020 Urine Protein 100 H Urine Glucose (UA) Normal Urine Ketones Negative Urine Occult Blood 250 H Urine Nitrite Negative Urine Bilirubin Negative Urine Urobilinogen Normal Ur Leukocyte Esterase 500 H Urine RBC 25-50 SEEN Urine WBC >100 SEEN Ur Squamous Epith Cells 0-5 SEEN Urine Bacteria 3+ Urine Mucus RARE 06/12/20 12:00 WBC RBC Hgb Hct MCV MCH MCHC RDW Std Deviation RDW Coeff of Wilson Plt Count MPV Immature Gran % (Auto) Neut % (Auto) Lymph % (Auto) Don[place] % (Auto) Eos % (Auto) Baso % (Auto) Absolute Neuts (auto) Absolute Lymphs (auto) Nucleated RBC % Sodium Potassium Chloride Carbon Dioxide Anion Gap BUN Creatinine Estim Creat Clear Calc Est GFR (MDRD) Af Amer Est GFR (MDRD) Non-Af BUN/Creatinine Ratio Glucose Calcium Total Bilirubin AST ALT Alkaline Phosphatase Total Protein Albumin Globulin Albumin/Globulin Ratio Lipase Serum , Qual NEGATIVE Urine Color Urine Clarity Urine pH Ur Specific Alexander Urine Protein Urine Glucose (UA) Urine Ketones Urine Occult Blood Urine Nitrite Urine Bilirubin Urine Urobilinogen Ur Leukocyte Esterase Urine RBC Urine WBC Ur Squamous Epith Cells Urine Bacteria Urine Mucus Radiography Diagnostic Testing: Radiology Impression Abdomen/Pelvis CT 06/12/20 11:36 IMPRESSION: Thickened endometrium. Small amount of fluid in the cul-de-sac. Bilateral ovarian follicles. Electronically Signed: Trev Nuñez MD at 14:22 EDT , Service support , Discharge Plan Triage Chief Complaint: Abd Pain ED Provider: Pedro Georges Dx/Rx/DC Orders Clinical Impression: Urinary tract infection Instructions: ED Bladder Infection, Female (Adult) Prescriptions: New ciprofloxacin HCl [ciprofloxacin HCl] 500 MG tablet 500 mg PO BID Qty: 14 RF: 0 No Action NK RF: 0 Primary Care Provider: Barbara Rivera NP Referrals: Barbara Rivera NP, CONSERVATION SCIENCE OFFICER-C [Primary Care Provider] - 5-7 Days Disposition Patient Disposition: Home, self care
[2020-06-12 11:52] LABS: Color, Urine Yellow (Yellow); Glucose, Dipstick Normal (Normal); Ketone-Dipstick Negative (Negative); Leukocyte Esterase-Dipstick 500 /ul (Negative); Nitrite-Dipstick Negative (Negative); Occult Blood-Urine 250 /ul (Negative); Protein-Dipstick 100 mg/dl (Negative); Urine Bilirubin Dipstick Negative (Negative); Urine Clarity Cloudy (Clear); Urine Urobilinogen Normal (Normal)
[2020-06-12] MEDS: Ondansetron 4 MG/2 ML Vial IV (11:52)
[2020-06-12] MEDS: Morphine 4 MG/ML Syringe IV (11:52)
[2020-06-12] MEDS: 0.9% Normal Saline 1,000 ML 1000 ML IV (11:55)
[2020-06-12 11:57] LABS: White Blood Cells >100 SEEN /hpf (0-5)
[2020-06-12 11:58] LABS: Bacteria 3+ /hpf (None Seen); Mucous, Urine RARE /hpf (<or=2+); Red Blood Cells-Urine 25-50 SEEN /hpf (0-5); Squamous Epithelial Cells - UA 0-5 SEEN /hpf (5-10)
[2020-06-12] MEDS: DiphenhydrAMINE 50 MG/ML Syringe 25 MG IV (12:03)
[2020-06-12 12:07] LABS: Absolute Lymphocyte Count 1.84 X10^3/uL (0.83-4.51); Absolute Neutrophil Count 9.3 X10^3/uL (2.0-7.7); Basophil# 0.03 X10^3/uL; Basophil% 0.2 % (0-1); Eosinophil# 0.16 X10^3/uL; Eosinophils% 1.3 % (0-5); Hematocrit 37.7 % (37-47); Hemoglobin 11.8 g/dL (12.0-15.0); Lymphocyte # 1.84 X10^3/ul (0.83-4.51); Lymphocyte % 15.3 % (19-41); Mean Corp Hgb Conc 31.3 g/dL (32-36); Mean Corpuscular Hgb 27.6 pg (27.0-32.0); Mean Corpuscular Volume 88.3 fL (81-99); Mean Platelet Vol. 10.1 fl (6.2-12.0); Monocyte# 0.68 X10^3/uL; Monocyte% 5.6 % (0-10); NRBC Flagged by Analyzer 0 % (0-5); Neutrophil # 9.31 X10^3/uL (2.7-7.7); Neutrophil % 77.4 % (47-70); Platelet Count 223 K/mm3 (150-450); RBC Distribution Width CV 13.3 % (11.6-14.6); RBC Distribution Width SD 43.1 fl (35.1-43.9); Red Blood Count 4.27 M/mm3 (4.2-5.4); White Blood Count 12.1 K/mm3 (4.4-11.0)
--- NOTE | 2020-06-12 12:16 | ED.RN ---
PT REPORTS THAT SHE CONTACTED HER EX- WHO REPORTS THAT PT HAD A SIMILAR REACTION TO MORPHINE IN THE PAST. PT REPORTS SHE HAS HAD ZOFRAN BEFORE AN EXPERIENCED NO DIFFICULTY WITH IT. MORPHINE ADDED TO PT ALLERGY LIST.
--- NOTE | 2020-06-12 12:18 | ED.RN ---
PT A+0X4, HIVES PRESENT AROUND IV AREA IN RIGHT AC. PT REPORTS SHE FEELS BETTER AFTER RECEIVING THE BENADRYL AND THAT SHE HAS NOT NOTICED ANY INCREASE IN RASH SIZE. PT DRINKING CONTRAST FOR CT. LIGHTING ADJUSTED PER PT REQUEST.
[2020-06-12 12:22] LABS: AST(SGOT) 17 U/L (15-37); Alanine Aminotransfer ALT/SGPT 22 U/L (13-56); Albumin, Serum 3.6 g/dL (3.2-5.0); Alkaline Phosphatase 68 U/L (45-117); Anion Gap 5 (5-15); BUN 25 mg/dL (7-18); BUN/Creat Ratio 37.3 RATIO (10-20); Calcium,Total 8.6 mg/dL (8.5-10.1); Chloride 107 mmol/L (98-107); Creatinine, Serum 0.67 mg/dL (0.55-1.02); EST Glomerular Filtration Rate 112 mL/min (>60); Est Glom Filt Rate - Afr Amer 136 mL/min (>60); Estimated Creatinine Clearance 109.34 ml/min; Globulin 3.5 g/dL (2.2-4.2); Glucose 77 mg/dL (74-106); Lipase 99 U/L (73-393); Potassium 4.3 mmol/L (3.5-5.1); Protein, Total 7.1 g/dL (6.4-8.2); Sodium Level 138 mmol/L (136-145)
[2020-06-12 12:36] LABS: Internal QC Validated? YES +Cl - CLEAR BKGD; Pregnancy, Serum, hCG Quali. NEGATIVE Negative
[2020-06-12] MEDS: Ceftriaxone 1 GM/50 ML BAG IV (13:03)
[2020-06-12 13:53] VITALS: BP 104/60; PULSE 99; RESP 14; TEMP 36.6; O2SAT 100
[2020-06-12 15:10] VITALS: BP 107/69; PULSE 89; RESP 16; O2SAT 98
== END 2020-06-12 15:12 | disposition home or self-care (01) ==
PROVIDERS: Emergency Provider Emergency Medicine; PCP Nurse Practitioner Primary Care
DX: N39.0 Urinary tract infection, site not specified (principal); Z87.442 Personal history of urinary calculi
CPT/HCPCS: 74177; 80053; 81001; 83690; 84703; 85025; 96361; 96365; 96366; 96374; 96375; 99283; J7030; Q9967; J2405

== ENCOUNTER 2022-03-16 12:39 | Emergency (ER) | payer MEDICAID, SELFPAY ==
[2022-03-16 12:40] VITALS: BP 110/80; PULSE 111; RESP 15; TEMP 36.3; O2SAT 98; BMI 20.5
--- NOTE | 2022-03-16 13:02 | RAD_ITS ---
INDICATION: trauma. Pain across the top of the feet. Dropped to a box on feet. EXAMINATION/TECHNIQUE: X-RAY - LEFT XR Foot Min 3 Views 3 VIEWS COMPARISON: None. FINDINGS: SOFT TISSUES: No soft tissue swelling or gas. No radiopaque foreign body. BONES/JOINTS: No acute fracture or subluxation.. Normal alignment. Preservation of the joint space.. No sclerotic or destructive changes observed. RAD/Foot min 3 Views IMPRESSION: No acute osseous injury. Electronically Signed: Soheila Stovall MD at 13:39 EST ,
--- NOTE | 2022-03-16 13:02 | RAD_ITS ---
INDICATION: trauma. Dropped box on feet. Pain across the top of the feet EXAMINATION/TECHNIQUE: X-RAY - RIGHT XR Foot 3 VIEWS COMPARISON: Left foot dated March 16, 2022. FINDINGS: SOFT TISSUES: No soft tissue swelling or gas. No radiopaque foreign body. BONES/JOINTS: No acute fracture or subluxation.. There is a rounded bony density distal to the lateral malleolus which may reflect an ossicle or may be secondary to an old avulsion injury. Normal alignment. Preservation of the joint space.. No sclerotic or destructive changes observed. RAD/Foot min 3 Views IMPRESSION: No acute osseous injury. Electronically Signed: Soheila Stovall MD at 13:38 EST ,
--- NOTE | 2022-03-16 13:08 | EDS_ITS ---
HPI History of Present Illness HPI Narrative: Bilateral foot pain after dropping a 100 pound toolbox on both feet last night around 11 PM. Chief Complaint: Lower Extremity Injury Informant: patient and friend Occured/Mechanism Mechanism/Context: Yes injury and Yes blunt trauma Onset/Context/Timing Onset: Yesterday Context: Sudden Onset Timing: Continuous Quality of Pain: Aching Current Severity: Moderate Maximum Severity: Moderate Associated Symptoms Associated Symptoms: Negative for Parasthesia, Weakness or Loss of Funtion Narrative Narrative: 26-year-old female no significant past medical history. Last night was carrying 100+ pound toolbox accidentally dropped it on top of both feet now complaining of bilateral foot pain. This occurred last night around 11 PM. No other injuries. No other complaints. No prior broken bones or surgery to either foot. Prior similar symptoms: No Recent Illness/Hospitalization: No PFSH PFSH Medical History Depression Kidney stones Home Medications NK 06/12/20 [History Last Taken Unknown] ciprofloxacin HCl 500 mg tablet 500 mg PO BID #14 TABLETS 06/12/20 [Rx Last Jayy en Unknown] Allergy/AdvReac Type Severity Reaction Status Date / Time codeine phosphate Allergy Anaphylaxis Verified 03/16/22 12:44 [From Tylenol-Codeine #3] hydrocodone bitartrate Allergy Anaphylaxis Verified 03/16/22 12:44 [From Vicodin] hydroxyzine Allergy Anaphylaxis Verified 03/16/22 12:44 Morpholine Analogues Allergy Hives Verified 03/16/22 12:44 Surgical History History of section Social History Smoking Status: Never smoker ROS ROS ED ROS Narrative Denies recent illness. Review of Systems ROS Unobtainable: Denies due to encephalopathy Constitutional Constitutional ED: Denies chills or fever(s) Eyes Eyes: Denies blurry vision ENT ENT ED: Denies ear pain Cardiovascular Cardiovascular: Denies chest pain Respiratory/Chest Respiratory/Chest: Denies cough or dyspnea Gastrointestinal Gastrointestinal: Denies abdominal pain Genitourinary Genitourinary ED: Denies dysuria or hematuria Musculoskeletal Musculoskeletal: Denies arthralgias Integumentary Denies abscess Neurologic Neurologic: Denies headache(s) Psychiatric Psychiatric: Denies anxiety Endocrine Endocrinology: Denies polydipsia Hematologic/Lymphatic Hematologic/Lymphatic: Denies easy bleeding Allergic/Immunologic Allergic/Immunologic ED: Denies mouth swelling or tongue swelling EXAM Physical Exam Narrative Exam Narrative: 18-year-old female no acute distress. Vital signs stable afebrile. H EENT exam unremarkable atraumatic. Pupils round react light. Lungs clear. Heart regular rhythm rate about 110 no murmur. Chest were nontender. Abdomen soft nontender. Back nontender. Both upper extremities are nontender normal range of motion and splitting machine feeder strength. Both feet are tender over the anterior aspect. No significant swelling. No deformity. Ankle is nontender. Normal DP pulse. Dorsi plantarflexion intact. Achilles tendon intact. Knees and hips nontender. Neurologic exam awake and alert with no focal motor deficits. Const Vital Signs: 03/16/22 12:40 Temperature 97.4 F L Temperature Source Temporal Pulse Rate 111 H Respiratory Rate 15 Blood Pressure 110/80 Blood Pressure Mean 90 Pulse Ox 98 Oxygen Delivery Method Room Air Positive well nourished and well developed; Negative for obese, cachectic, contractures or unkempt General Appearance ED: well developed and NAD; Negative for unkempt, cachectic or contractures Nutritional Appearance: Negative for cachectic or obese HEENT Reports moist mucous membranes normocephalic and atraumatic; Negative for trauma or tenderness Eyes PERRL General Eye ED: Negative for other Neck full ROM and supple Thyroid: Negative for tender Lymph Lymphatic: Negative for other Chest Wall inspection of chest normal Chest: Negative for other Resp normal respiratory effort, no retractions and clear to auscultation bilaterally Effort and Inspection: Negative for pain with movement Auscultation: Negative for rales, rhonchi or wheezes Cardio regular rhythm, S1 normal heart sound, S2 normal heart sound and no murmurs; Negative for regular rate Rate: tachycardic; Negative for bradycardia Rhythm: Negative for abnormal rhythm Bruits: Negative for other GI non-tender, non-distended and no masses Inspection: Negative for abdominal distention Auscultation: normoactive bowel sounds Palpation: soft; Negative for tender or guarding Bladder / Kidney Exam: No other Back/Spine no CVA tenderness General Back: Negative for CVA tenderness Cervical Spine: Negative for cervical spine tenderness Thoracic Spine / Upper Back: Negative for thoracic spinal tenderness Lumbar Spine / Lower Back: Negative for lumbar spinal tenderness Extremity normal to inspection and full ROM General Extremety ED: Negative for cyanosis or edema General Extremity: Negative for cyanosis or edema Neuro oriented x3, CN's II-XII intact bilaterally and moves all extremities Sensorium / Orientation: alert, oriented to person, oriented to place and oriented to time Motor Exam: strength 5/5 throughout Psych mental status grossly normal Appearance: Negative for unkempt Speech: No other Mood & Affect: Negative for anxious Skin no wounds Lesions: no lesions Rashes: no rashes Trauma: Negative for abrasion or laceration MDM MDM MDM Narrative Medical decision making narrative: 26-year-old female bilateral foot trauma after dropping 100+ pound toolbox on both feet. X-rays are being obtained on each. She did not want anything for pain at this time. I went back into the room to reevaluate the patient at 2:50 PM. Nurse told me that they had to go take care of their children because her it corporate recruiter had to leave. I will try to contact her on the phone and let her know that her x-rays were unremarkable. Radiography Diagnostic Testing: Clinical Impression(s) from Imaging Studies Foot X-Ray 03/16/22 13:02 IMPRESSION: No acute osseous injury. Electronically Signed: Soheila Stovall MD at 13:38 EST , Foot X-Ray 03/16/22 13:02 IMPRESSION: No acute osseous injury. Electronically Signed: Soheila Stovall MD at 13:39 EST , Left foot x-ray, 3 views, interpreted by myself and the radiologist shows no acute abnormality. No fracture or dislocation. Both the radiologist and I agree. Right foot x-ray, 3 views, interpreted by myself and the radiologist shows no acute abnormality. No fracture or dislocation. Discharge Plan Triage Chief Complaint: Lower Extremity Injury ED Provider: Deyvi Corbin Dx/Rx/DC Orders Clinical Impression: Contusion of foot, right, Contusion of foot, left Instructions: ED Foot Contusion Prescriptions: No Action NK ciprofloxacin HCl [ciprofloxacin HCl] 500 MG tablet 500 mg PO BID Qty: 14 0RF Primary Care Provider: Barbara Rivera NP Referrals: Barbara Rivera NP, DIRECTOR QUALITY SYSTEMS-C [Primary Care Provider] - 1 Week if not improving Activity Restrictions/Additional Instructions: Ice and elevate to decrease pain and swelling Motrin for pain and swelling and Tylenol for pain. Follow-up with your primary care provider or the records management director Dr. Deyvi Rojas if not improving. Your x-rays today were unremarkable. No fracture or dislocation noted. Disposition Disposition: Home, Self Care
--- NOTE | 2022-03-16 14:57 | ED.RN ---
1455: Dr Corbin to room to discuss results with patient, patient not in room. Seen walking to the exit with family member a few minute prior by this RN.
--- NOTE | 2022-03-16 15:36 | ED.RN ---
PT LEFT PRIOR TO RECEIVING DISCHARGE INSTRUCTIONS. DR. MORTENSEN CALLED PT TO INFORM OF RESULTS, PT DID NOT ANSWER. PT CALLS BACK TO ED, INFORMED OF RESULTS.
== END 2022-03-16 15:49 | disposition home or self-care (01) ==
PROVIDERS: Emergency Provider Emergency Medicine; PCP Nurse Practitioner Primary Care; Visit Provider Emergency Medicine
DX: S90.32XA Contusion of left foot, initial encounter (principal); S90.31XA Contusion of right foot, initial encounter; R00.0 Tachycardia, unspecified; W22.8XXA Striking against or struck by other objects, initial encounter; Y93.89 Activity, other specified
CPT/HCPCS: 73630; 99282

== ENCOUNTER 2022-12-23 11:04 | Emergency (ER) | payer MEDICAID, SELFPAY ==
[2022-12-23 11:05] VITALS: BP 114/73; PULSE 98; RESP 18; TEMP 36.6; O2SAT 100; BMI 17.6
--- NOTE | 2022-12-23 11:15 | EDS_ITS ---
HPI <ERNA Mendez - Last Filed: 12/23/22 12:09> History of Present Illness Chief Complaint: Back Narrative Narrative: 27-year-old female was using a jackhammer yesterday and states the hose attachment came off of the jackhammer and struck her in the mid back and the jackhammer hit her sternum. She woke up today much more sore and it hurts to take a deep breath. She took Motrin this morning. This injury occurred while helping a family member, not at work. PFSH <ERNA Mendez - Last Filed: 12/23/22 12:09> FORMERLY [facility] Medical History Depression Kidney stones Home Medications ciprofloxacin HCl 500 mg tablet 500 mg PO BID #14 TABLETS 06/12/20 [Rx Last Taken Unknown] tizanidine 4 mg capsule 4 mg PO TID PRN muscle spasticity 5 days #15 caps 12/23/22 [Rx Last Taken Unknown] Allergy/AdvReac Type Severity Reaction Status Date / Time codeine phosphate Allergy Anaphylaxis Verified 12/23/22 11:07 [From Tylenol-Codeine #3] hydrocodone bitartrate Allergy Anaphylaxis Verified 12/23/22 11:07 [From Vicodin] hydroxyzine Allergy Anaphylaxis Verified 12/23/22 11:07 Morpholine Analogues Allergy Hives Verified 12/23/22 11:07 Surgical History History of section Social History Smoking Status: Never smoker ROS <ERNA Mendez - Last Filed: 12/23/22 12:09> ROS ED ROS Narrative Constitutional: Negative for fever, chills, malaise. CVS: Negative for chest wall pain. Respiratory: Negative for shortness of breath. GI: Negative for abdominal pain, nausea, vomiting. Skin: Negative for wound. EXAM <ERNA Mendez - Last Filed: 12/23/22 12:09> Physical Exam Narrative Exam Narrative: CONST: Patient sitting in no acute distress. EYES: Normal inspection. NECK: Normal inspection. RESP: No respiratory distress, CTAB. Tender palpation over lower sternum, no deformity or crepitus. CVS: Regular rate and rhythm, no murmur, no gallop. ABD: Soft and nontender, no guarding or rebound, nondistended. Back: Normal inspection, tenderness over the thoracic spine with no step-offs or crepitus, otherwise nontender. SKIN: Color normal, no rash, warm, dry, intact. EXTREMITIES: Normal appearance, no pedal edema. NEURO: Oriented x4. PSYCH: Normal affect. Const Vital Signs: 12/23/22 11:05 Temperature 98 F Temperature Source Temporal Pulse Rate 98 Respiratory Rate 18 Blood Pressure 114/73 Blood Pressure Mean 86 Pulse Ox 100 Oxygen Delivery Method Room Air <Dr. Deyvi Corbin MD - Last Filed: 12/23/22 12:04> Physical Exam Const Vital Signs: 12/23/22 11:05 Temperature 98 F Temperature Source Temporal Pulse Rate 98 Respiratory Rate 18 Blood Pressure 114/73 Blood Pressure Mean 86 Pulse Ox 100 Oxygen Delivery Method Room Air MDM <ERNA Mendez - Last Filed: 12/23/22 12:09> [facility] Narrative Medical decision making narrative: History gathered from: Patient and family member Patient was using a jackhammer when part of it struck her sternum and thoracic back area and has increasing soreness today. She appears well and nontoxic. Vital signs stable. She has no evidence of external trauma. She is tender over the lower sternum and thoracic spine with no deformities. Normal cardiopulmonary exam. No abdominal tenderness. ED attending interpretation of 2 view chest x-ray shows no evidence of displaced rib fractures or pneumothorax. No evidence of spinal fracture. Her chest wall and back contusions were treated with IM Toradol and I recommended OTC pain relievers and prescribed tizanidine. Patient was discharged in stable condition. Differential: Chest wall and back contusions, fracture I have personally performed a face to face assessment of the patient and have reviewed the KRIS Note. I performed a substantive portion of the visit including all aspects of the following. My kiran findings include: History is 27-year-old female was using a jackhammer yesterday helping a family member with some work. Of upper back pain and sternal chest discomfort. Re portedly jackhammer hit her in the chest. No other injuries. Exam is [well-appearing 27-year-old female. Vital signs are stable afebrile. Pulse ox 100% on room air no hypoxia. HEENT exam unremarkable atraumatic. C- spine nontender. Lungs clear to auscultation bilaterally. Heart regular rhythm no murmur rate about 90. Mild tenderness over the sternum. No ecchymosis or bruising. No subcu air or crepitance. No bony deformity. Abdomen soft nontender. Normal bowel sounds no peritoneal signs. Pelvic girdle intact. Moving all 4 extremities. 5 out of 5 estimation manager strength. Dorsi plantarflexion intact. Normal range of motion both upper and lower extremities. Back tenderness on primarily the para thoracic soft tissue. Neurologically she is awake and alert with no focal motor or sensory deficits.] Medical Decision Making [patient complaining of sternal and upper back pain. I think this is a chest wall contusion and most likely myofascial strain in the upper back. Chest x-ray being obtained which should help with evaluate both the sternum and thoracic spine even though my clinical suspicion is low. Toradol for pain.] Other additions or changes: [None] <Dr. Deyvi Corbin MD - Last Filed: 12/23/22 12:04> [facility] Narrative Medical decision making narrative: Patient was using a jackhammer when part of it struck her sternum and thoracic back area and has increasing soreness today. She appears well and nontoxic. Vital signs stable. She has no evidence of external trauma. She is tender over the lower sternum and thoracic spine with no deformities. Normal cardiopulmonary exam. No abdominal tenderness. I have personally performed a face to face assessment of the patient and have reviewed the KRIS Note. I performed a substantive portion of the visit including all aspects of the following. My kiran findings include: History is 27-year-old female was using a jackhammer yesterday helping a family member with some work. Of upper back pain and sternal chest discomfort. Reportedly jackhammer hit her in the chest. No other injuries. Exam is [well-appearing 27-year-old female. Vital signs are stable afebrile. Pulse ox 100% on room air no hypoxia. HEENT exam unremarkable atraumatic. C- spine nontender. Lungs clear to auscultation bilaterally. Heart regular rhythm no murmur rate about 90. Mild tenderness over the sternum. No ecchymosis or bruising. No subcu air or crepitance. No bony deformity. Abdomen soft nontender. Normal bowel sounds no peritoneal signs. Pelvic girdle intact. Moving all 4 extremities. 5 out of 5 estimation manager strength. Dorsi plantarflexion intact. Normal range of motion both upper and lower extremities. Back tenderness on primarily the para thoracic soft tissue. Neurologically she is awake and alert with no focal motor or sensory deficits.] Medical Decision Making [patient complaining of sternal and upper back pain. I think this is a chest wall contusion and most likely myofascial strain in the upper back. Chest x-ray being obtained which should help with evaluate both the sternum and thoracic spine even though my clinical suspicion is low. Toradol for pain.] Other additions or changes: [None] History & Record Review Discussion w/independent historian: Patient Additional record(s) reviewed:: Prior inpatient record, Prior outpatient record and Prior ED visit Radiography Chest X-Ray - ED: 2 View, Read by ED Physician, Heart, Lungs, Mediastinum, Bony Structures, No Acute Disease and Chronic Changes Diagnostic Testing: Today, 2 views, interpreted by myself shows no acute abnormality. Normal cardiac silhouette. Normal lung [place]. Normal sternum. Normal thoracic spine. Discharge Plan Triage Chief Complaint: Back ED Midlevel Provider: Michelle Araiza ED Provider: Deyvi Corbin Dx/Rx/DC Orders Clinical Impression: Back strain, Chest wall contusion Instructions: ED Back Sprain/Strain, ED Chest Wall Contusion Prescriptions: New tizanidine 4 mg capsule 4 mg PO TID PRN (Reason: muscle spasticity) 5 Days Qty: 15 0RF No Action ciprofloxacin HCl [ciprofloxacin HCl] 500 MG tablet 500 mg PO BID Qty: 14 0RF Primary Care Provider: Barbara Rivera NP Referrals: PodlogBarbara lopez NP, [employer] [Primary Care Provider] - 1 Week if not improving Activity Restrictions/Additional Instructions: Motrin for pain and inflammation and Tylenol for pain. Ice your chest wall and all sore areas. Hot shower, warm bath and massage for your back muscles. Follow-up with your doctor if not improving. Disposition Disposition: Home, Self Care
[2022-12-23] MEDS: Ketorolac 15 MG/ML Vial IM (11:26)
--- NOTE | 2022-12-23 11:43 | RAD_ITS ---
STUDY: X-RAY CHEST REASON FOR EXAM: Female, 27 years old. Contusion TECHNIQUE: Frontal and lateral views of the chest COMPARISON: None. FINDINGS: The lungs are clear. There are no pleural effusions. There is no pneumothorax. The heart is normal in size. The visualized osseous structures are within normal limits. RAD/Chest PA and Lateral IMPRESSION: No acute thoracic pathology. Electronically Signed: Ant Frye MD at 12:08 EST ,
== END 2022-12-23 12:22 | disposition home or self-care (01) ==
LOC: ED 11:35
PROVIDERS: Emergency Provider Emergency Medicine; PCP Nurse Practitioner Primary Care; Visit Provider Emergency Medicine
DX: S39.012A Strain of muscle, fascia and tendon of lower back, initial encounter (principal); S20.20XA Contusion of thorax, unspecified, initial encounter; W22.8XXA Striking against or struck by other objects, initial encounter; Y93.89 Activity, other specified
CPT/HCPCS: 71046; 96372; 99282

== ENCOUNTER 2023-05-11 13:20 | Emergency (ER) | payer MEDICAID, SELFPAY ==
[2023-05-11 13:21] VITALS: BP 142/97; PULSE 109; RESP 16; TEMP 35.9; O2SAT 100; BMI 17.7
== END 2023-05-11 14:00 | disposition left against medical advice (07) ==
LOC: ED 14:19
PROVIDERS: PCP Nurse Practitioner Primary Care
DX: Z00.00 Encounter for general adult medical examination without abnormal findings (principal)
CPT/HCPCS: 99282

== ENCOUNTER 2023-07-06 21:57 | Emergency (ER) | payer MEDICAID, SELFPAY ==
[2023-07-06 21:58] VITALS: BP 124/96; PULSE 95; RESP 18; TEMP 36.3; O2SAT 100; BMI 17.5
--- NOTE | 2023-07-06 23:10 | ED.RN ---
Pt was not present when name was called for room. Pt stated at check in that she has left before if the wait is too long. Pt told at that time there was a wait.
== END 2023-07-06 23:05 | disposition left against medical advice (07) ==
LOC: ED 23:09
PROVIDERS: PCP Nurse Practitioner Primary Care
DX: R51.9 Headache, unspecified (principal)
CPT/HCPCS: 99283

== ENCOUNTER 2024-01-09 16:01 | Emergency (ER) | payer MEDICAID, SELFPAY ==
[2024-01-09 16:02] VITALS: BP 131/94; PULSE 118; RESP 16; TEMP 36.2; O2SAT 100; BMI 16.6
--- NOTE | 2024-01-09 16:14 | RAD_ITS ---
EXAM: XR RIGHT HAND COMPLETE, 3 OR MORE VIEWS CLINICAL INDICATION: pain after punching a door TECHNIQUE: Frontal, lateral and oblique views of the right hand. COMPARISON: No relevant prior studies available. FINDINGS: BONES/JOINTS: Unremarkable. No acute fracture. No subluxation. Normal alignment. Preservation of the joint space. No sclerotic or destructive changes observed. SOFT TISSUES: Unremarkable. No soft tissue swelling or gas. No radiopaque foreign body. RAD/Hand Min 3 Views IMPRESSION: Negative right hand x-rays. Electronically Signed: Parvez Monk MD at 16:50 EST ,
--- NOTE | 2024-01-09 16:23 | EX.ED.UPPERE ---
HPI History of Present Illness HPI Narrative: 28-year-old female [id number] punched a door and had immediate pain within the last hour. No prior fracture of the hand or surgery. No other complaints. Chief Complaint: Upper Extremity Injury Informant: patient Occured/Mechanism Mechanism/Context: Yes injury and Yes blunt trauma Onset/Context/Timing Onset: Today and Hours Context: Sudden Onset Timing: Continuous Quality of Pain: Sharp Current Severity: Moderate Maximum Severity: Moderate Associated Symptoms Associated Symptoms: Negative for Parasthesia, Weakness or Loss of Funtion Narrative Narrative: 28-year-old female [id number] punched a door complaining of pain to her right hand. No prior history of surgery to this hand. Prior similar symptoms: No Recent Illness/Hospitalization: No PFSH PFSH Medical History Kidney stones Depression Home Medications ?Medication ?Instructions ?Recorded ?Last Taken ?Type ciprofloxacin HCl 500 mg tablet 500 mg PO BID #14 TABLETS 06/12/20 Unknown Rx tizanidine 4 mg capsule 4 mg PO TID PRN muscle spasticity 12/23/22 Unknown Rx 5 days #15 caps Allergy/AdvReac Type Severity Reaction Status Date / Time codeine phosphate (From Allergy Anaphylaxis Verified 01/09/24 16:04 Tylenol-Codeine #3) hydrocodone bitartrate (From Allergy Anaphylaxis Verified 01/09/24 16:04 Vicodin) hydroxyzine Allergy Anaphylaxis Verified 01/09/24 16:04 Morpholine Analogues Allergy Hives Verified 01/09/24 16:04 Surgical History History of section Social History Smoking Status: Never smoker ROS ROS ED ROS Narrative Denies recent illness. Constitutional Constitutional ED: Denies chills or fever(s) Eyes Eyes: Denies blurry vision ENT ENT ED: Denies ear pain Cardiovascular Cardiovascular: Denies chest pain Respiratory/Chest Respiratory/Chest: Denies cough Gastrointestinal Gastrointestinal: Denies abdominal pain Genitourinary Genitourinary ED: Denies dysuria Musculoskeletal Musculoskeletal: Denies back pain Integumentary Denies abscess Neurologic Neurologic: Denies headache(s) Psychiatric Psychiatric: Reports anxiety and depression Endocrine Endocrinology: Denies cold intolerance Hematologic/Lymphatic Hematologic/Lymphatic: Denies easy bleeding Allergic/Immunologic Allergic/Immunologic ED: Denies mouth swelling EXAM Physical Exam Narrative Exam Narrative: 28-year-old female vital signs stable afebrile. Does not look septic toxic. Complaint hand pain. H EENT exam unremarkable atraumatic. Neck nontender. Back nontender. Lungs clear to auscultation. Heart regular rhythm no murmur. Rate about 115. Chest wall nontender. Abdomen soft nontender. Moving all 4 extremities. The right hand as pain overall for knuckles of the index to the small finger. There is no gross bony deformity. Minimal swelling. No bruising. No crepitance. Limited flexion and extension due to pain. Patient is awake and alert no focal motor deficits. Const Vital Signs: 01/09/24 16:02 Temperature 97.2 F L Temperature Source Oral Pulse Rate 118 H Respiratory Rate 16 Blood Pressure 131/94 H Blood Pressure Mean 106 Pulse Ox 100 Oxygen Delivery Method Room Air Positive well nourished and well developed; Negative for obese, cachectic, contractures or unkempt General Appearance ED: well developed and NAD; Negative for unkempt, cachectic, contractures, cyanotic or diaphoretic Nutritional Appearance: Negative for cachectic or obese HEENT Reports moist mucous membranes normocephalic and atraumatic; Negative for trauma or tenderness Eyes PERRL and EOMs intact bilaterally Neck full ROM and supple Chest Wall inspection of chest normal and palpation of chest normal Resp normal respiratory effort and clear to auscultation bilaterally Cardio regular rhythm, S1 normal heart sound, S2 normal heart sound and no murmurs; Negative for regular rate Rate: tachycardic GI non-tender, non-distended and no masses Palpation: soft; Negative for tender, guarding or rebound tenderness present Back/Spine no CVA tenderness Extremity Negative for normal to inspection or full ROM Extremity Narrative: Diffuse tenderness right hand primarily over the MCP knuckles. Limited flexion extension due to pain. Minimal swelling. No gross bony deformity. No bruising. General Extremety ED: Yes edema General Extremity: edema Neuro oriented x3, CN's II-XII intact bilaterally, moves all extremities and no focal motor deficits Sensorium / Orientation: alert, oriented to person, oriented to place and oriented to time; Negative for orientation impaired or lethargic Motor Exam: strength 5/5 throughout Psych mental status grossly normal Appearance: Negative for unkempt Attitude: No agitated Mood & Affect: anxious; Negative for depressed or tearful Skin Lesions: no lesions Rashes: no rashes Trauma: no lacerations or abrasions; Negative for abrasion or laceration MDM MDM MDM Narrative Medical decision making narrative: 28-year-old punched a door complaining of right hand pain. X-ray was obtained of the right hand 4 views interpreted by myself shows no fracture or dislocation. Tylenol for pain here. Alternate Motrin and Tylenol at home. Ice and elevate. Follow-up with not improving. History & Record Review Discussion w/independent historian: Patient Radiography Diagnostic Testing: Right hand x-ray, 4 views interpreted by myself shows no fracture or dislocation. Discharge Plan Triage Chief Complaint: Upper Extremity Injury ED Provider: Deyvi Corbin Dx/Rx/DC Orders Clinical Impression: Contusion of hand Instructions: ED Contusion, Upper Extremity Prescriptions: No Action ciprofloxacin HCl [ciprofloxacin HCl] 500 MG tablet 500 mg PO BID Qty: 14 0RF tizanidine 4 mg capsule 4 mg PO TID PRN (Reason: muscle spasticity) 5 Days Qty: 15 0RF Primary Care Provider: Barbara Rivera NP Referrals: Barbara Rivera NP, [employer] [Primary Care Provider] - 1 Week if not improving Activity Restrictions/Additional Instructions: On the x-rays today there is no obvious broken bone or dislocation. Most likely just bruised her hand significantly. Ice and elevate. Ice like 4-5 times a day for 30 minutes each time. Elevate to decrease swelling. Alternate Motrin and Tylenol for pain. Motrin like 600 mg 3-4 times a day. This will help decrease pain and swelling. This is going to be really sore the next several days and should progressively get better over the next week if it is not improving get reexamined and joe-rayed. Sometimes on follow-up x-ray she will see a small crack that we could not see on the first x-ray. Print Language: Serbian Disposition Disposition: Home, Self Care
[2024-01-09] MEDS: Acetaminophen 500 MG Tablet 1000 MG PO (16:29)
[2024-01-09 16:31] VITALS: BP 126/78; PULSE 72; RESP 18; TEMP 36.4; O2SAT 99
== END 2024-01-09 16:33 | disposition home or self-care (01) ==
LOC: ED 16:25
PROVIDERS: Emergency Provider Emergency Medicine; PCP Nurse Practitioner Primary Care; Visit Provider Emergency Medicine
DX: S60.229A Contusion of unspecified hand, initial encounter (principal); F41.9 Anxiety disorder, unspecified; F32.A Depression, unspecified; W22.8XXA Striking against or struck by other objects, initial encounter
CPT/HCPCS: 73130; 99282